=== PATIENT | female | born 1970 | race Caucasian/White ===

== ENCOUNTER 2019-04-02 08:20 | Day surgery (SDC) | payer MEDICAID, OTHER ==
[~2019-04-02] VITALS: Ht 162.6 cm; Wt 85.7 kg
[2019-04-02] MEDS ORDERED: MIDAZOLAM 2 MG/2 ML VIAL ONE (11:20)
[2019-04-02] MEDS ORDERED: LIDOCAINE 2% 100 MG/5 ML UJET TP ONE (11:20)
[2019-04-02] MEDS ORDERED: fentaNYL 0.05 MG/ML VIAL ONE (11:20)
== END 2019-04-02 12:40 | disposition home or self-care (01) ==
LOC: MDS 08:20 → MMU 08:21 → MDS 12:40
PROVIDERS: ATTEND Internal Medicine Gastroenterology
DX: Z12.11 Encounter for screening for malignant neoplasm of colon (principal); D12.3 Benign neoplasm of transverse colon; I10 Essential (primary) hypertension; E11.9 Type 2 diabetes mellitus without complications; E66.9 Obesity, unspecified; F17.210 Nicotine dependence, cigarettes, uncomplicated; Z86.010 Personal history of colon polyps; Z72.89 Other problems related to lifestyle; Z79.899 Other long term (current) drug therapy; Z79.84 Long term (current) use of oral hypoglycemic drugs; Z98.890 Other specified postprocedural states; Z80.0 Family history of malignant neoplasm of digestive organs
CPT/HCPCS: 45385; J3010; 82948; J2250

== ENCOUNTER 2023-01-08 15:20 | Inpatient (IN) | payer OTHER ==
[~2023-01-08] VITALS: Ht 162.6 cm; Wt 78.5 kg
[2023-01-08 15:36] VITALS: BP 101/70
[2023-01-08] MEDS ORDERED: ATROPINE 0.5 MG/5 ML SYR IVP ONE ×2 (15:40→17:40)
[2023-01-08] MEDS ORDERED: ASPIRIN 325 MG TAB PO ONE (15:40)
[2023-01-08] MEDS ORDERED: NITROGLYCERIN 0.4 MG TAB SL ONE (15:40)
--- NOTE | 2023-01-08 15:43 | NUR ---
PATIENT AMBULATED TO BED 11.
[2023-01-08] MEDS ORDERED: ATROPINE 1 MG/10 ML SYR IVP ONE ×2 (15:45→17:40)
[2023-01-08 15:58] LABS: BASOPHILS # (AUTO) 0.1 K/uL (0.00-0.22); BASOPHILS % (AUTO) 0.9 % (0.0-2.0); EOSINOPHILS # (AUTO) 0.3 K/uL (0-0.4); EOSINOPHILS % (AUTO) 5.1 % (0.0-4.0); HEMATOCRIT 40.8 % (36-48); HEMOGLOBIN 14.1 g/dL (12.0-16.0); LYMPHOCYTES # (AUTO) 1.9 K/uL (2.5-16.5); LYMPHOCYTES % (AUTO) 32.5 % (20.5-51.1); MEAN CORPUSCULAR HEMOGLOBIN 34 pg (27-31); MEAN CORPUSCULAR HGB CONC 35 g/dL (33-37); MEAN CORPUSCULAR VOLUME 97.4 fL (80-94); MONOCYTES # (AUTO) 0.4 K/uL (0.8-1.0); MONOCYTES % (AUTO) 7.9 % (1.7-9.3); NEUTROPHILS # (AUTO) 3.1 K/uL (1.8-7.7); NEUTROPHILS % (AUTO) 53.6 % (42.2-75.2); PLATELET COUNT (AUTO) 137 K/uL (140-450); RED BLOOD CELL COUNT(AUTO) 4.19 MIL/uL (4.20-5.40); RED CELL DISTRIBUTION WIDTH 12.7 % (11.6-13.7); WHITE BLOOD COUNT (AUTO) 5.7 K/uL (4.8-10.8)
--- NOTE | 2023-01-08 16:00 | NUR ---
No nitro in pyxis. Pharmacy called.
[2023-01-08 16:15] LABS: ALBUMIN 4.2 g/dL (3.4-5.0); ANION GAP 13.4 (8-16); CARBON DIOXIDE 27.6 mmol/L (21-32); TOTAL BILIRUBIN 0.6 mg/dL (0.0-1.0)
[2023-01-08 16:28] LABS: PROTHROMBIN TIME 10.2 secs (10.8-13.4)
[2023-01-08] MEDS ORDERED: MECLIZINE 25 MG TAB PO ONE (17:50)
--- NOTE | 2023-01-08 18:04 | NUR ---
Pt taken to CT via wheelchair.
[2023-01-08] MEDS ORDERED: POTASSIUM CHLORIDE 10 MEQ TABER PO PRN (19:25)
[2023-01-08] MEDS ORDERED: MAG SULF 2000 MG/WATER PREMIX 50 ML IV PRN (19:25)
[2023-01-08] MEDS ORDERED: ZOLPIDEM 10 MG TAB PO PRN (19:25)
[2023-01-08] MEDS ORDERED: ONDANSETRON 4 MG/2 ML VIAL IVP PRN (19:25)
[2023-01-08] MEDS ORDERED: MORPHINE SULFATE 2 MG/ML SYR IVP PRN (19:25)
[2023-01-08] MEDS ORDERED: ACETAMINOPHEN 325 MG TAB PO PRN (19:25)
[2023-01-08] MEDS ORDERED: LORazepam 2 MG/ML VIAL IVP PRN (19:25)
[2023-01-08] MEDS ORDERED: DOCUSATE SODIUM 100 MG GELCAP PO PRN (19:25)
--- NOTE | 2023-01-08 23:47 | NUR ---
RECEIVED PATIENT FROM ER NURSE VIA [facility] FOR CONTINUITY OF CARE. PATIENT IS ALERT ORIENTED X 4. PIV ON LEFT AC 20G INTACT AND PATENT . PATIENT HAS NO COMPLAIN OF PAIN AT THIS TIME. WILL CONTINUE TO MONITOR
--- NOTE | 2023-01-09 02:12 | NUR ---
PATIENT ASLEEP, NO DISTRESS NOTED,ALL SAFETY MEASURES IN PLACE
[2023-01-09 04:00] VITALS: BP 140/66
--- NOTE | 2023-01-09 06:32 | NUR ---
[id number]. Belongings list completed. Report GIVEN TO RECEIVING RN. PATIENT STABLEAT THE TIME OF TRANSFER
[2023-01-09 07:30] LABS: BASOPHILS # (AUTO) 0.1 K/uL (0.00-0.22); BASOPHILS % (AUTO) 0.9 % (0.0-2.0); EOSINOPHILS # (AUTO) 0.2 K/uL (0-0.4); HEMATOCRIT 37.2 % (36-48); HEMOGLOBIN 12.8 g/dL (12.0-16.0); LYMPHOCYTES # (AUTO) 2.4 K/uL (2.5-16.5); LYMPHOCYTES % (AUTO) 42.8 % (20.5-51.1); MEAN CORPUSCULAR HEMOGLOBIN 34 pg (27-31); MEAN CORPUSCULAR HGB CONC 35 g/dL (33-37); MONOCYTES # (AUTO) 0.5 K/uL (0.8-1.0); MONOCYTES % (AUTO) 8.7 % (1.7-9.3); NEUTROPHILS # (AUTO) 2.5 K/uL (1.8-7.7); NEUTROPHILS % (AUTO) 43.6 % (42.2-75.2); PLATELET COUNT (AUTO) 126 K/uL (140-450); RED BLOOD CELL COUNT(AUTO) 3.75 MIL/uL (4.20-5.40); RED CELL DISTRIBUTION WIDTH 12.8 % (11.6-13.7); WHITE BLOOD COUNT (AUTO) 5.6 K/uL (4.8-10.8)
[2023-01-09 07:47] LABS: ANION GAP 12.9 (8-16); CARBON DIOXIDE 27.7 mmol/L (21-32); CREATININE 0.9 mg/dL (0.6-1.3); POTASSIUM 4.6 mmol/L (3.5-5.1)
[2023-01-09 08:00] VITALS: BP 159/80
[2023-01-09] MEDS: lisinopriL 5 MG TAB PO SCH (08:54)
[2023-01-09] MEDS: ASPIRIN 81 MG TAB.CHEW PO SCH (08:54)
--- NOTE | 2023-01-09 09:23 | NUR ---
PATIENT HAS BEEN SCREENED AND CATEGORIZED MODERATE NUTRITION RISK. PATIENT WILL BE SEEN WITHIN 3-5 DAYS OF ADMISSION. / REVIEWED BY CARLOS LENNON RD
[2023-01-09 12:00] VITALS: BP 146/72
--- NOTE | 2023-01-09 15:43 | NUR ---
DC PLANNING ASSESSMENT COMPLETE PLEASE REFER TO ASSESSMENT FOR ADDITIONAL DETAILS MET WITH PT AT BEDSIDE TO COMPLETE ASSESSMENT. PT ANOX4 AND ABLE TO PROVIDE ALL OF HER OWN INFORMATION. PT IS A 52 YR OLD FEMALE ADMITTED TO [facility] FROM HOME WITH DX OF CHEST PAIN. PT HAS PAST MEDICAL HX OF HYPERTENSION, HYPERLIPIDEMIA & DIABETES. PT REPORTS CHRONIC ALCOHOL USE SPANNING OVER 20 YRS. PT REPORTS CONSUMING 1 PINT OF ALCOHOL DAILY. PROVIDED PT WITH PSYCHO-EDUCATION ON GROUP HOME ALCOHOL USE. PT RECEPTIVE AND ACKNOWLEDGED. PT ACCEPTED SUBSTANCE USE RESOURCES OFFERED BY [employer]. PT REPORTS BEING INDEPENDENT IN ALL ACTIVITIES AND DENIES USE OF DME. PT RESIDES IN A SINGLE STORY HOME WITH HER FATHER, SISTER, CHILDREN AND NIECES AND NEPHEWS, AT THE ADDRESS LISTED ON FILE PT REPORTS DC PLAN IS TO RETURN HOME WITH FAMILY PROVIDING TRANSPORTATION, WHEN MEDICALLY STABLE. Addendum: 01/09/23 at 1544 by Meagan MARQUEZ Amended: Links added.
[2023-01-09 16:00] VITALS: BP 153/81
--- NOTE | 2023-01-09 19:30 | NUR ---
RECEIVED REPORT FROM DAY SHIFT RN FOR CONTINUITY OF CARE. PT IS AWAKE AND ALERT. PT IS RESTING IN BED NOT IN ANY DISTRESS. DENIES CHEST PAIN AT THIS TIME. PT HAS LEFT AC 20 GAUGE SALINE LOCK. POC DISCUSSED. WILL CONTINUE TO MONITOR THE PT.
[2023-01-09 20:00] VITALS: BP 147/74
[2023-01-10] VITALS: BP 152/80
--- NOTE | 2023-01-10 00:02 | NUR ---
CHECKED ON PT. PT IS AWAKE NOT IN ANY DISTRESS. PT HAS NO COMPLAINS AT THIS TIME. WILL CONTINUE TO MONITOR THE PT.
[2023-01-10 04:00] VITALS: BP 131/89
--- NOTE | 2023-01-10 04:07 | NUR ---
VITAL SIGNS TAKEN AND STABLE. PT HAS NO COMPLAINS AT THIS TIME. PT NOT IN ANY DISTRESS. WILL CONTINUE TO MONITOR THE PT.
[2023-01-10 06:43] LABS: BASOPHILS # (AUTO) 0.1 K/uL (0.00-0.22); BASOPHILS % (AUTO) 1.1 % (0.0-2.0); EOSINOPHILS # (AUTO) 0.3 K/uL (0-0.4); EOSINOPHILS % (AUTO) 4.8 % (0.0-4.0); HEMATOCRIT 40.3 % (36-48); LYMPHOCYTES # (AUTO) 2.7 K/uL (2.5-16.5); LYMPHOCYTES % (AUTO) 46.2 % (20.5-51.1); MEAN CORPUSCULAR HEMOGLOBIN 34 pg (27-31); MEAN CORPUSCULAR HGB CONC 35 g/dL (33-37); MEAN CORPUSCULAR VOLUME 97.5 fL (80-94); MONOCYTES # (AUTO) 0.6 K/uL (0.8-1.0); MONOCYTES % (AUTO) 9.6 % (1.7-9.3); NEUTROPHILS # (AUTO) 2.3 K/uL (1.8-7.7); NEUTROPHILS % (AUTO) 38.3 % (42.2-75.2); PLATELET COUNT (AUTO) 135 K/uL (140-450); RED BLOOD CELL COUNT(AUTO) 4.13 MIL/uL (4.20-5.40); RED CELL DISTRIBUTION WIDTH 12.8 % (11.6-13.7); WHITE BLOOD COUNT (AUTO) 5.9 K/uL (4.8-10.8)
--- NOTE | 2023-01-10 07:12 | NUR ---
ENDORSED PT TO DAY SHIFT RN FOR CONTINUITY OF CARE. PT IS STABLE.
--- NOTE | 2023-01-10 07:15 | NUR ---
RECEIVED PT FROM NIGHT RN, PT IS AWAKE, ALERT AND ORIENTED, SIDE RAILS ARE UP AND CALL LIGHT WITHIN REACH, IV LINE NOTED ON THE LEFT AC G. 20 ON SALINE LOCK, PT IS ON ROOM AIR, AND NO SIGN OF DISTRESS NOTED. WILL MONITOR PT.
[2023-01-10 08:00] VITALS: BP 145/73
[2023-01-10 08:05] LABS: ANION GAP 13.5 (8-16); CARBON DIOXIDE 27.1 mmol/L (21-32); CREATININE 0.8 mg/dL (0.6-1.3); POTASSIUM 3.6 mmol/L (3.5-5.1)
[2023-01-10] MEDS: ASPIRIN 81 MG TAB.CHEW PO SCH (09:15)
[2023-01-10] MEDS: lisinopriL 5 MG TAB PO SCH (09:16)
[2023-01-10] MEDS ORDERED: ASPI81CT95 PO (10:05)
[2023-01-10] MEDS ORDERED: LISI5TAB24 PO (10:05)
[2023-01-10 12:18] VITALS: BP 155/90
--- NOTE | 2023-01-10 12:54 | NUR ---
DISCHARGED PT TO HOME ACCOMPANIED BY SON, DISCHARGED TEACHINGS GIVEN TO PT AND VERBALIZED UNDERSTANDING, IV LINE REMOVED AND PT IS STABLE AT THIS TIME.
== END 2023-01-10 12:55 | disposition home or self-care (01) | DRG 201 ==
LOC: MED 15:20 → MTU 19:21
PROVIDERS: ADMIT Family Medicine; ATTEND Family Medicine
DX: R00.1 Bradycardia, unspecified (principal); E11.9 Type 2 diabetes mellitus without complications; R07.89 Other chest pain; I16.0 Hypertensive urgency; E78.5 Hyperlipidemia, unspecified; E83.42 Hypomagnesemia; I10 Essential (primary) hypertension; Z20.822 Contact with and (suspected) exposure to COVID-19
CPT/HCPCS: 36415; 70450; 71045; 80048; 80053; 82948; 83735; 83880; 84484; 85025; 85610; 85730; 87081; 93005; 96374; 96375; 99291; J0461; J2270; J3475; J8597; Q0092

== ENCOUNTER 2023-01-12 21:46 | Emergency (ER) | payer OTHER ==
[~2023-01-12] VITALS: Ht 162.6 cm; Wt 77.6 kg
[~2023-01-12 21:46] MED LIST: ASPI81CT95 PO; LISI5TAB24 PO
--- NOTE | 2023-01-12 21:47 | NUR ---
PT TO BED #11. DR. PORTILLO AT BEDSIDE
[2023-01-12 21:50] VITALS: BP 150/94
[2023-01-12] MEDS ORDERED: diphenhydrAMINE 50 MG CAP PO ONE (21:50)
[2023-01-12] MEDS ORDERED: EPINEPHrine 1 MG/ML AMP IM ONE (21:50)
--- NOTE | 2023-01-12 21:50 | NUR ---
BIB self c/o allergic reaction. difficulty breathing. per pt no hx of allergies, but ate hazelnuts. pmhx diabetes and hypertension.
--- NOTE | 2023-01-12 22:30 | NUR ---
Pt made correction stated she was eating walnuts not hazelnuts
[2023-01-12] MEDS ORDERED: METH4TAB1 PO (23:28)
[2023-01-12 23:32] VITALS: BP 147/78
--- NOTE | 2023-01-12 23:33 | NUR ---
Patient discharged with v/s stable. Written and verbal after care instructions given and explained. New rx methyprednisone. Patient verbalized understanding. Ambulatory with steady gait. All questions addressed prior to discharge. Advised to follow up with PMD.
== END 2023-01-12 23:33 | disposition home or self-care (01) ==
LOC: MED 21:46
DX: T78.1XXA Other adverse food reactions, not elsewhere classified, initial encounter (principal); E11.9 Type 2 diabetes mellitus without complications; I10 Essential (primary) hypertension; E78.5 Hyperlipidemia, unspecified; Z79.899 Other long term (current) drug therapy; Z79.2 Long term (current) use of antibiotics; X58.XXXA Exposure to other specified factors, initial encounter
CPT/HCPCS: 96372; 99283; J0171; Q0163

== ENCOUNTER 2023-07-21 16:59 | Emergency (ER) | payer OTHER, BC ==
[~2023-07-21] VITALS: Ht 162.6 cm; Wt 76.2 kg
[~2023-07-21 16:59] MED LIST changes: +AMLO-3 PO; +ASPI-1794 PO; -ASPI81CT95 PO; +ATOR20TA40 PO; +CLON0.1T16 PO; -LISI5TAB24 PO; +METF-346 PO; +OXYC5TAB4 PO
[2023-07-21 17:09] VITALS: BP 128/65; PULSE 68; RESP 18; TEMP 97.5; O2SAT 97
[2023-07-21] MEDS ORDERED: NACL 0.9% 1,000 ML IV ONE (17:45)
[2023-07-21] MEDS ORDERED: ONDANSETRON 4 MG/2 ML VIAL IVP ONE (17:45)
[2023-07-21] MEDS ORDERED: ACETAMINOPHEN EXTRA STRENGTH 500 MG TAB PO ONE (17:55)
[2023-07-21 20:13] VITALS: BP 144/82; PULSE 64; RESP 16; O2SAT 99
== END 2023-07-21 20:13 | disposition home or self-care (01) ==
LOC: MED 16:59
DX: S50.12XA Contusion of left forearm, initial encounter (principal); S09.90XA Unspecified injury of head, initial encounter; F19.10 Other psychoactive substance abuse, uncomplicated; E11.9 Type 2 diabetes mellitus without complications; I10 Essential (primary) hypertension; Z79.899 Other long term (current) drug therapy; Z79.82 Long term (current) use of aspirin; Z88.8 Allergy status to other drugs, medicaments and biological substances; W18.2XXA Fall in (into) shower or empty bathtub, initial encounter; Y92.89 Other specified places as the place of occurrence of the external cause; Y93.89 Activity, other specified; Y99.8 Other external cause status
CPT/HCPCS: 70450; 73090; 73110; 73140; 96361; 96374; 99285; J2405; J7030

== ENCOUNTER 2023-11-23 09:19 | Emergency (ER) | payer OTHER, BC ==
[~2023-11-23] VITALS: Ht 162.6 cm; Wt 76.2 kg
[2023-11-23 09:26] VITALS: BP 127/91; PULSE 123; RESP 18; TEMP 96.8; O2SAT 99
[2023-11-23 09:54] LABS: BASOPHILS % (AUTO) 0.3 % (0.0-2.0); HEMATOCRIT 34.5 % (36-48); HEMOGLOBIN 11.8 g/dL (12.0-16.0); LYMPHOCYTES % (AUTO) 7.1 % (20.5-51.1); MEAN CORPUSCULAR HEMOGLOBIN 34 pg (27-31); MEAN CORPUSCULAR HGB CONC 34 g/dL (33-37); MEAN CORPUSCULAR VOLUME 100.4 fL (80-94); MONOCYTES # (AUTO) 0.7 K/uL (0.8-1.0); MONOCYTES % (AUTO) 4.9 % (1.7-9.3); NEUTROPHILS # (AUTO) 12.4 K/uL (1.8-7.7); NEUTROPHILS % (AUTO) 87.7 % (42.2-75.2); PLATELET COUNT (AUTO) 224 K/uL (140-450); RED BLOOD CELL COUNT(AUTO) 3.44 MIL/uL (4.20-5.40); RED CELL DISTRIBUTION WIDTH 12.7 % (11.6-13.7); WHITE BLOOD COUNT (AUTO) 14.2 K/uL (4.8-10.8)
[2023-11-23 10:00] LABS: ANION GAP 26.5 (8-16); CALCIUM 8.9 mg/dL (8.5-10.1); CARBON DIOXIDE 20.2 mmol/L (21-32); POTASSIUM 4.7 mmol/L (3.5-5.1)
[2023-11-23 10:06] LABS: ALBUMIN 3.6 g/dL (3.4-5.0); BILIRUBIN,DIRECT 0.2 mg/dL (0.0-0.3); TOTAL BILIRUBIN 0.5 mg/dL (0.0-1.0); TOTAL PROTEIN, SERUM 8.1 g/dL (6.4-8.2)
[2023-11-23] MEDS ORDERED: NACL 0.9% 2,000 ML IV ONE (10:10)
[2023-11-23 10:38] LABS: ACETONE, SERUM Negative (NEGATIVE)
[2023-11-23] MEDS ORDERED: MORPHINE SULFATE 4 MG/ML SYR IVP ONE (10:50)
[2023-11-23] MEDS ORDERED: ONDANSETRON 4 MG/2 ML VIAL IVP ONE (10:50)
[2023-11-23 10:51] LABS: SALICYLATE < 2.8 mg/dL (2.8-20.0)
[2023-11-23 12:00] VITALS: O2SAT 99
[2023-11-23] MEDS ORDERED: VANCOMYCIN 1,000 MG in DEXTROSE 5% 250 ML IV ONE (12:20)
[2023-11-23] MEDS ORDERED: PIPERACILLIN/TAZOBACTAM 3.375 GM in DEXTROSE 5% 50 ML IV ONE (12:20)
[2023-11-23 12:43] LABS: APPEARANCE,URINE CLEAR (CLEAR); BILIRUBIN,URINE NEGATIVE (NEGATIVE); BLOOD, URINE 2+ (NEGATIVE); COLOR,URINE YELLOW (YELLOW); LEUKOCYTE ESTERASE ,URINE NEGATIVE (NEGATIVE); NITRITE, URINE NEGATIVE (NEGATIVE); PROTEIN,URINE TRACE (NEGATIVE); UGLUCOSE 3+ (NEGATIVE); UROBILINOGEN,URINE 0.2 EU/dL (0.2 - 1)
[2023-11-23] MEDS ORDERED: VANCOMYCIN 1,000 MG VIAL ONE (12:48)
[2023-11-23] MEDS ORDERED: PIPERACILLIN/TAZOBACTAM 3.375 GM VIAL IV ONE (12:48)
[2023-11-23 12:55] LABS: BACTERIA,URINE 10-30 (MOD) /HPF (None Seen); SQUAMOUS EPITHELIAL CELL,UR 4-10 (MOD) /LPF (0-3 (FEW)); WBC,URINE 0-5 /HPF (0-5)
[2023-11-23 14:29] VITALS: BP 126/78; PULSE 114; RESP 26; TEMP 98.9; O2SAT 97
== END 2023-11-23 14:29 | disposition short-term general hospital (02) ==
LOC: MED 09:19
DX: S37.032A Laceration of left kidney, unspecified degree, initial encounter (principal); K68.3 Retroperitoneal hematoma; E87.20 Acidosis, unspecified; D50.9 Iron deficiency anemia, unspecified; D72.829 Elevated white blood cell count, unspecified; E11.9 Type 2 diabetes mellitus without complications; I10 Essential (primary) hypertension; Z79.4 Long term (current) use of insulin; Z79.899 Other long term (current) drug therapy; X58.XXXA Exposure to other specified factors, initial encounter; Y93.89 Activity, other specified; Y92.89 Other specified places as the place of occurrence of the external cause; Y99.8 Other external cause status
CPT/HCPCS: 36415; 74176; 80048; 80076; 81001; 81025; 82009; 83605; 83690; 84484; 85025; 87040; 87086; 93005; 96365; 96366; 96367; 96375; 99291; 99292; G0480; J2270; J2405; J2543; J3370; J7030

== ENCOUNTER 2023-12-01 19:11 | Emergency (ER) | payer OTHER, BC ==
[~2023-12-01] VITALS: Ht 162.6 cm; Wt 72.6 kg
[2023-12-01 19:15] VITALS: BP 120/71; PULSE 86; RESP 18; TEMP 98.7; O2SAT 99
[2023-12-01 19:20] VITALS: BP 131/90; PULSE 99; RESP 19; TEMP 97.9; O2SAT 96
[2023-12-01 19:25] VITALS: O2SAT 96
[2023-12-01 20:08] LABS: APPEARANCE,URINE CLEAR (CLEAR); BILIRUBIN,URINE NEGATIVE (NEGATIVE); BLOOD, URINE NEGATIVE (NEGATIVE); COLOR,URINE YELLOW (YELLOW); LEUKOCYTE ESTERASE ,URINE NEGATIVE (NEGATIVE); NITRITE, URINE NEGATIVE (NEGATIVE); PH,URINE 6.5 (5.0-9.0); PROTEIN,URINE NEGATIVE (NEGATIVE); UGLUCOSE 2+ (NEGATIVE)
[2023-12-01 20:09] LABS: BASOPHILS % (AUTO) 0.8 % (0.0-2.0); EOSINOPHILS # (AUTO) 0.1 K/uL (0-0.4); HEMATOCRIT 29.6 % (36-48); HEMOGLOBIN 10.1 g/dL (12.0-16.0); LYMPHOCYTES # (AUTO) 1.5 K/uL (2.5-16.5); LYMPHOCYTES % (AUTO) 25.6 % (20.5-51.1); MEAN CORPUSCULAR HEMOGLOBIN 34 pg (27-31); MEAN CORPUSCULAR HGB CONC 34 g/dL (33-37); MEAN CORPUSCULAR VOLUME 98.5 fL (80-94); MONOCYTES # (AUTO) 0.8 K/uL (0.8-1.0); MONOCYTES % (AUTO) 12.6 % (1.7-9.3); NEUTROPHILS # (AUTO) 3.5 K/uL (1.8-7.7); PLATELET COUNT (AUTO) 395 K/uL (140-450); RED CELL DISTRIBUTION WIDTH 13.3 % (11.6-13.7)
[2023-12-01] MEDS: MORPHINE SULFATE 4 MG/ML SYR IVP ONE (20:09)
[2023-12-01 20:19] LABS: INR 0.93 (0.8-1.2); PARTIAL THROMBOPLASTIN TIME 23.9 secs (22-35.6); PROTHROMBIN TIME 9.8 secs (10.8-13.4)
[2023-12-01 20:21] LABS: ALBUMIN 2.9 g/dL (3.4-5.0); BILIRUBIN,DIRECT 0.3 mg/dL (0.0-0.3); TOTAL BILIRUBIN 0.7 mg/dL (0.0-1.0); TOTAL PROTEIN, SERUM 8.1 g/dL (6.4-8.2)
[2023-12-01 20:25] LABS: ANION GAP 12.3 (8-16); CALCIUM 8.8 mg/dL (8.5-10.1); CREATININE 1.2 mg/dL (0.6-1.3); POTASSIUM 3.3 mmol/L (3.5-5.1)
[2023-12-01 21:54] VITALS: BP 129/75
[2023-12-01] MEDS ORDERED: ACET-503 PO (22:22)
== END 2023-12-01 22:33 | disposition home or self-care (01) ==
LOC: MED 19:11
DX: S37.032A Laceration of left kidney, unspecified degree, initial encounter (principal); R10.32 Left lower quadrant pain; E11.9 Type 2 diabetes mellitus without complications; I10 Essential (primary) hypertension; Z79.899 Other long term (current) drug therapy; Z79.4 Long term (current) use of insulin; X58.XXXA Exposure to other specified factors, initial encounter; Y93.89 Activity, other specified; Y92.89 Other specified places as the place of occurrence of the external cause; Y99.8 Other external cause status
CPT/HCPCS: 36415; 74174; 80048; 80076; 81003; 83690; 85025; 85610; 85730; 96374; 99285; J2270; Q9967